=== PATIENT | male | born 1955 | race Caucasian/White ===

== ENCOUNTER → 2016-07-08 | Day surgery (SDC) | payer OTHER ==
[~2016-07-08] MED LIST: ALLOPURINOL100 MG PO; AMLOD-VALSA-HC1 EAC2 PO; CO Q-10200 MG PO; CRESTOR5 MG PO; JANUVIA100 MG PO; LOFIBRA160 MG PO; NIACIN ER1000 MG PO
[2016-07-08 06:31] LABS: HCT 43.9 % (42.0-52.0); HGB 13.9 g/dl (13.2-18.0); MCH 27.3 pg (25.0-31.0); MCHC 31.7 g/dL (32.0-36.0); MCV 86.1 fL (78.0-100.0); MPV 9.1 fL (6.0-9.5); RBC 5.1 M/uL (4.70-6.00); WBC 10.4 K/uL (4.0-10.5)
== END | disposition home or self-care (01) ==
LOC: FAS 06:17
PROVIDERS: Surgery
DX: D12.0 Benign neoplasm of cecum (principal); K62.1 Rectal polyp; I10 Essential (primary) hypertension; E78.00 Pure hypercholesterolemia, unspecified; E11.9 Type 2 diabetes mellitus without complications; G47.30 Sleep apnea, unspecified; M19.90 Unspecified osteoarthritis, unspecified site; M10.9 Gout, unspecified; E66.9 Obesity, unspecified; Z68.39 Body mass index [BMI] 39.0-39.9, adult; Z99.89 Dependence on other enabling machines and devices; Z86.2 Personal history of diseases of the blood and blood-forming organs and certain disorders involving the immune mechanism; Z87.891 Personal history of nicotine dependence; Z80.0 Family history of malignant neoplasm of digestive organs; Z91.013 Allergy to seafood; Z91.018 Allergy to other foods; Z79.82 Long term (current) use of aspirin; Z79.899 Other long term (current) drug therapy
CPT/HCPCS: 36415; 80048; 88305; J2704

== ENCOUNTER 2016-07-10 06:59 | Day surgery (SDCO) | payer OTHER ==
[2016-07-10 07:44] LABS: INR 1.05 (0.9-1.2); PROTHROMBIN TIME 13.3 SECONDS (11.7-14.0); PTT 24.1 SECONDS (23.2-31.4)
[2016-07-10 08:09] LABS: BASOPHIL 0.2 % (0-2); EOSINOPHIL 0.7 % (0-5); HCT 33.9 % (42.0-52.0); HGB 10.6 g/dl (13.2-18.0); LYMPHOCYTE 21.6 % (15-48); MCH 27.7 pg (25.0-31.0); MCHC 31.3 g/dL (32.0-36.0); MCV 88.5 fL (78.0-100.0); MONOCYTE 6.8 % (0-12); MPV 9.6 fL (6.0-9.5); NEUTROPHIL 70.7 % (41-80); PLT 281 K/uL (150-400); RBC 3.83 M/uL (4.70-6.00); RDW 14.7 % (11.5-14.0)
[2016-07-10 08:30] LABS: ALBUMIN 3.7 g/dL (3.5-5.0); BILIRUBIN - TOTAL 0.2 mg/dL (0.1-1.0); CREATININE 0.9 mg/dL (0.7-1.2); GLOBULIN (CALCULATION) 2.7 g/dL (2.2-4.2); POTASSIUM 4.3 mmol/L (3.5-5.1); TOTAL PROTEIN 6.4 g/dL (6.4-8.3)
[2016-07-10 12:06] LABS: HCT 30.8 % (42.0-52.0); HGB 9.7 g/dl (13.2-18.0); MCHC 31.5 g/dL (32.0-36.0); MPV 9.5 fL (6.0-9.5); RBC 3.46 M/uL (4.70-6.00); RDW 14.8 % (11.5-14.0); WBC 14.5 K/uL (4.0-10.5)
[2016-07-10 18:13] LABS: BASOPHIL 0.1 % (0-2); EOSINOPHIL 0.3 % (0-5); HCT 28.7 % (42.0-52.0); HGB 9.1 g/dl (13.2-18.0); LYMPHOCYTE 17.1 % (15-48); MCH 27.7 pg (25.0-31.0); MCHC 31.7 g/dL (32.0-36.0); MCV 87.2 fL (78.0-100.0); MONOCYTE 6.6 % (0-12); MPV 9.2 fL (6.0-9.5); NEUTROPHIL 75.9 % (41-80); PLT 248 K/uL (150-400); RBC 3.29 M/uL (4.70-6.00); RDW 14.6 % (11.5-14.0); WBC 15.6 K/uL (4.0-10.5)
[2016-07-11 04:22] LABS: BASOPHIL 0.2 % (0-2); EOSINOPHIL 0.5 % (0-5); HCT 25.3 % (42.0-52.0); LYMPHOCYTE 22.1 % (15-48); MCH 27.8 pg (25.0-31.0); MCHC 31.6 g/dL (32.0-36.0); MCV 87.8 fL (78.0-100.0); MPV 9.4 fL (6.0-9.5); NEUTROPHIL 70.2 % (41-80); PLT 239 K/uL (150-400); RBC 2.88 M/uL (4.70-6.00); RDW 14.4 % (11.5-14.0); WBC 13.1 K/uL (4.0-10.5)
[2016-07-11 04:48] LABS: CREATININE 0.9 mg/dL (0.7-1.2); POTASSIUM 3.7 mmol/L (3.5-5.1)
[2016-07-11 17:56] LABS: HCT 29.8 % (42.0-52.0); HGB 9.6 g/dl (13.2-18.0); MCH 28.2 pg (25.0-31.0); MCHC 32.2 g/dL (32.0-36.0); MCV 87.6 fL (78.0-100.0); RBC 3.4 M/uL (4.70-6.00); RDW 15.2 % (11.5-14.0); WBC 11.3 K/uL (4.0-10.5)
[2016-07-12 04:14] LABS: BASOPHIL 0.2 % (0-2); EOSINOPHIL 1.9 % (0-5); HGB 8.9 g/dl (13.2-18.0); LYMPHOCYTE 22.6 % (15-48); MCH 28.2 pg (25.0-31.0); MCHC 31.8 g/dL (32.0-36.0); MCV 88.6 fL (78.0-100.0); MONOCYTE 8.4 % (0-12); NEUTROPHIL 66.9 % (41-80); PLT 223 K/uL (150-400); RBC 3.16 M/uL (4.70-6.00); RDW 15.2 % (11.5-14.0); WBC 11.7 K/uL (4.0-10.5)
[2016-07-12 04:33] LABS: CREATININE 1.1 mg/dL (0.7-1.2); MAGNESIUM 2.28 mg/dL (1.40-2.10); POTASSIUM 4.2 mmol/L (3.5-5.1)
[2016-07-12] MEDS ORDERED: ALLOPURINOL100 MG PO (11:04)
[2016-07-12] MEDS ORDERED: AMLOD-VALSA-HC1 EAC2 PO (11:05)
[2016-07-12] MEDS ORDERED: CRESTOR5 MG PO (11:05)
[2016-07-12] MEDS ORDERED: CO Q-10200 MG PO (11:05)
[2016-07-12] MEDS ORDERED: LOFIBRA160 MG PO (11:06)
[2016-07-12] MEDS ORDERED: NIACIN ER1000 MG PO (11:07)
[2016-07-12] MEDS ORDERED: JANUVIA100 MG PO (11:07)
== END 2016-07-12 11:25 | disposition home or self-care (01) ==
LOC: FER 06:59 → FTCU 10:15
PROVIDERS: Emergency Medicine; Surgery; ADMIT Internal Medicine Cardiovascular Disease
DX: D12.0 Benign neoplasm of cecum (principal); K62.1 Rectal polyp; D69.3 Immune thrombocytopenic purpura; I10 Essential (primary) hypertension; E11.9 Type 2 diabetes mellitus without complications; E78.5 Hyperlipidemia, unspecified; E78.00 Pure hypercholesterolemia, unspecified; M10.9 Gout, unspecified; G47.30 Sleep apnea, unspecified; Z99.89 Dependence on other enabling machines and devices; Z91.013 Allergy to seafood; Z91.018 Allergy to other foods; Z88.2 Allergy status to sulfonamides; Z87.891 Personal history of nicotine dependence; Z82.49 Family history of ischemic heart disease and other diseases of the circulatory system; Z82.3 Family history of stroke; Z83.71 Family history of colonic polyps; Z79.82 Long term (current) use of aspirin; Z79.899 Other long term (current) drug therapy
CPT/HCPCS: 36415; 36430; 80048; 80053; 82962; 83735; 84484; 85025; 85610; 85730; 86850; 86900; 86901; 86922; 93005; G0378; J2704; P9016